=== PATIENT | male | born 1975 | race Caucasian/White ===

== ENCOUNTER 2020-01-09 08:59 | Inpatient (IN) ==
[2020-01-09] MEDS ORDERED: CeFAZolin Syr 3,000MG/30 ML 3,000 MG/30 ML SYRINGE IVPB ONE (09:14)
[2020-01-09] MEDS ORDERED: Ringers Solution, Lactated 1,000 ML IVC SCH ×2 (09:15→13:36)
[2020-01-09] MEDS ORDERED: Acetaminophen IV 1,000 MG/100 ML INFUS..BTL IVPB ONE (09:35)
[2020-01-09] MEDS ORDERED: Famotidine 20 MG/2 ML VIAL IVP ONE (09:35)
[2020-01-09] MEDS ORDERED: *HR* FentaNYL (PF) 100 MCG/2 ML VIAL ONE ×2 (09:50→11:17)
[2020-01-09] MEDS ORDERED: *HR* Propofol 200 MG/20 ML VIAL IVP ONE (09:50)
[2020-01-09] MEDS ORDERED: *HR* Midazolam HCl 2 MG/2 ML VIAL ONE (09:50)
[2020-01-09] MEDS ORDERED: *HR* Succinylcholine 200 MG/10 ML VIAL IVP ONE (09:53)
[2020-01-09] MEDS ORDERED: Lidocaine -MPF 2% 2 ML VIAL ONE (09:53)
[2020-01-09] MEDS ORDERED: Lidocaine -MPF 4% 5 ML AMPUL ONE (09:53)
[2020-01-09] MEDS ORDERED: Ondansetron 4 MG/2 ML VIAL ONE (09:53)
[2020-01-09] MEDS ORDERED: Dexamethasone 4 MG/ML VIAL ONE (09:53)
[2020-01-09] MEDS ORDERED: Ropivacaine/PF 0.5% 30 ML VIAL ONE (10:25)
[2020-01-09] MEDS ORDERED: Vancomycin 1,000 MG VIAL ONE (10:35)
[2020-01-09] MEDS ORDERED: Ethanol\\Acetic Acid\\Na Ace\\Ben 1,000 ML IRRIG.SOLN IR ONE (10:35)
[2020-01-09] MEDS ORDERED: Povidone-Iodine 45 ML, Sodium Chloride IRRigation 1,000 ML IR ONE (11:15)
[2020-01-09 13:01] LABS: Hematocrit 46.5 % (37.5-50.1); Hemoglobin 14.3 g/dL (12.9-16.9)
[2020-01-09] MEDS ORDERED: *HR* OxyCODONE Immed Rel 5 MG TABLET PO PRN ×2 (13:36)
[2020-01-09] MEDS ORDERED: Naloxone 0.4 MG/ML INJ IVP PRN (13:36)
[2020-01-09] MEDS ORDERED: *HR* HYDROmorphone PF 0.5 MG/0.5 ML SYRINGE IVP PRN (13:36)
[2020-01-09] MEDS ORDERED: Dextrose Gel 15 GM/37.5 ML TUBE PO PRN ×2 (13:36)
[2020-01-09] MEDS ORDERED: *HR* OxyCODONE/APAP 5/325 TABLET PO PRN (13:36)
[2020-01-09] MEDS ORDERED: MOM Conc 10 ML UD.LIQ PO PRN (13:36)
[2020-01-09] MEDS ORDERED: D5% in Water 1,000 ML IVC PRN (13:36)
[2020-01-09] MEDS ORDERED: Ondansetron 4 MG/2 ML VIAL IVP PRN ×2 (13:36)
[2020-01-09] MEDS ORDERED: *HR* Dextrose 50 % in Water (Vial) 50 ML VIAL IVP PRN (13:36)
[2020-01-09] MEDS ORDERED: Sennosides 8.6 MG TABLET PO PRN (13:36)
[2020-01-09] MEDS: Insulin LISPRO 300 UNITS/3 ML VIAL SQ SCH ×2 (14:15→18:12)
[2020-01-09] MEDS: ceFAZolin 3,000 MG in 0.9 % Sodium Chloride 100 ML IVPB SCH (16:27)
[2020-01-09] MEDS: Albuterol 2.5 MG/3 ML NEBULIZER IH SCH ×2 (16:43→22:54)
[2020-01-09] MEDS ORDERED: *HR* Enoxaparin 30 MG/0.3 ML SYRINGE SQ SCH (18:00)
[2020-01-09] MEDS: *HR* Enoxaparin 30 MG/0.3 ML SYRINGE SQ SCH (18:10)
[2020-01-09] MEDS ORDERED: Insulin LISPRO 300 UNITS/3 ML VIAL SQ SCH (21:00)
[2020-01-09] MEDS ORDERED: ALPRAZolam 0.5 MG TABLET PO ONE (22:21)
[2020-01-10] MEDS: ceFAZolin 3,000 MG in 0.9 % Sodium Chloride 100 ML IVPB SCH (01:22)
[2020-01-10] MEDS: Albuterol 2.5 MG/3 ML NEBULIZER IH SCH ×2 (04:43→11:14)
[2020-01-10] MEDS: *HR* Enoxaparin 30 MG/0.3 ML SYRINGE SQ SCH (05:10)
[2020-01-10 07:37] LABS: Hematocrit 45.6 % (37.5-50.1)
[2020-01-10 07:44] LABS: BUN/Creatinine Ratio 20 (6-26); Blood Urea Nitrogen 17 mg/dL (6-20); Calcium 9.6 mg/dL (8.6-10.3); Carbon Dioxide 24 mEq/L (23-29); Chloride 100 mEq/L (98-107); Glucose 168 mg/dL (70-105); Osmolality,Calculated 281 (280-300); Potassium 3.9 mEq/L (3.5-5.1); Sodium 133 mEq/L (136-145); eGFR For African Americans > 60 (> 60); eGFR For Non-African Americans > 60 (> 60)
[2020-01-10] MEDS ORDERED: Cholecalciferol (D-3) 1,000 UNIT (25MCG) TABLET PO SCH (09:00)
[2020-01-10] MEDS ORDERED: Cyanocobalamin (B-12) 1,000 MCG TABLET PO SCH (09:00)
[2020-01-10] MEDS: Insulin LISPRO 300 UNITS/3 ML VIAL SQ SCH (09:31)
[2020-01-10 10:14] VITALS: BP 111/67
== END 2020-01-10 11:15 | disposition home or self-care (01) | DRG 322 ==
LOC: SAMDAY 08:59 → 3NENU 13:33
PROVIDERS: ADMIT Orthopaedic Surgery; ATTEND Orthopaedic Surgery